=== PATIENT | male | born 1975 | race Caucasian/White ===

== ENCOUNTER 2018-10-05 08:01 | Inpatient (IN) | payer SELFPAY ==
[~2018-10-05] VITALS: Ht 177.8 cm; Wt 106.6 kg
[2018-10-05] MEDS ORDERED: SODIUM CHLORIDE 0.9% 1,000 ML IV ONE ×2 (10:03→11:35)
[2018-10-05] MEDS ORDERED: ONDANSETRON HCL 4MG/2ML INJ IV ONE (10:15)
[2018-10-05] MEDS ORDERED: MECLIZINE 25MG TABLET PO ONE (10:15)
[2018-10-05 11:18] LABS: BASOPHILS % 0.1 % (0.0-2.0); HEMATOCRIT. 46.9 % (42.0-52.0); LYMPHOCYTES % 8.1 % (20.0-50.0); MEAN CORPUSCULAR HEMOGLOBIN 28.7 pg (28.0-32.0); MEAN CORPUSCULAR VOLUME 84.2 fL (80.0-94.0); MEAN PLATELET VOLUME 8.7 fl (7.4-10.4); MONOCYTES % 6.5 % (2.0-8.0); NEUTROPHILS % 85.3 % (40.0-76.0); PLATELET 172 x1000/uL (130-400); RED BLOOD CELL COUNT 5.57 mill/uL (4.7-6.1); RED CELL DISTRIBUTION WIDTH 13.3 % (11.6-14.6)
[2018-10-05 11:24] LABS: CHLORIDE 106 mEq/L (98-107)
[2018-10-05 11:28] LABS: PROTHROMBIN TIME 10.3 sec (9.1-11.1)
[2018-10-05] MEDS ORDERED: LORAZEPAM 0.5MG TABLET PO PRN (17:30)
[2018-10-05] MEDS ORDERED: ONDANSETRON HCL 4MG/2ML INJ IV PRN (17:30)
[2018-10-05] MEDS ORDERED: DIPHENHYDRAMINE 50MG/ML VIAL IV PRN (17:30)
[2018-10-05] MEDS ORDERED: ACETAMINOPHEN 325MG TABLET PO PRN (17:30)
[2018-10-05] MEDS ORDERED: MECLIZINE 25MG TABLET PO PRN (17:30)
[2018-10-05] MEDS: SODIUM CHLORIDE 0.9% 1,000 ML IV SCH (18:33)
[2018-10-05 21:05] VITALS: BP 129/69
[2018-10-05] MEDS ORDERED: OMEP20TA15 PO (23:24)
[2018-10-05] MEDS ORDERED: CITA10TA16 PO (23:24)
[2018-10-06] VITALS: BP 121/59
[2018-10-06] MEDS: SODIUM CHLORIDE 0.9% 1,000 ML IV SCH (01:26)
[2018-10-06 04:00] VITALS: BP 119/64
[2018-10-06 06:46] LABS: BASOPHILS % 0.2 % (0.0-2.0); EOSINOPHILS % 1.2 % (0.0-5.0); HEMATOCRIT. 43.9 % (42.0-52.0); LYMPHOCYTES % 26.5 % (20.0-50.0); MEAN CORPUSCULAR HEMOGLOBIN 28.7 pg (28.0-32.0); MEAN CORPUSCULAR VOLUME 83.8 fL (80.0-94.0); MEAN PLATELET VOLUME 8.9 fl (7.4-10.4); MONOCYTES % 10.8 % (2.0-8.0); NEUTROPHILS % 61.3 % (40.0-76.0); PLATELET 172 x1000/uL (130-400); RED BLOOD CELL COUNT 5.24 mill/uL (4.7-6.1); RED CELL DISTRIBUTION WIDTH 13.4 % (11.6-14.6)
[2018-10-06 06:55] LABS: CHLORIDE 110 mEq/L (98-107)
[2018-10-06 07:06] LABS: PHOSPHORUS 2.7 mg/dL (2.5-4.9)
[2018-10-06 08:00] VITALS: BP 122/60
[2018-10-06] MEDS: PANTOPRAZOLE SODIUM 40 MG/VIAL IV SCH ×2 (09:10→12:14)
[2018-10-06] MEDS: CITALOPRAM HYDROBROMIDE 10MG TABLET PO SCH ×2 (09:11→12:14)
[2018-10-06 12:00] VITALS: BP 136/93
[2018-10-06 16:00] VITALS: BP 126/64
[2018-10-06] MEDS: MECLIZINE 25MG TABLET PO SCH (16:44)
[2018-10-06 20:00] VITALS: BP 117/79
[2018-10-07] MEDS: MECLIZINE 25MG TABLET PO SCH ×3 (01:59→17:57)
[2018-10-07 04:00] VITALS: BP 109/67
[2018-10-07 08:00] VITALS: BP 135/78
[2018-10-07 17:39] VITALS: BP 131/92
== END 2018-10-07 18:50 | disposition home or self-care (01) | DRG 111 ==
LOC: ER 08:22 → EDBEDREQTM 13:29 → EDBEDREQ 13:29 → 7WST 13:29 → ENRESERV 20:23 → 6EST 10-06 22:01
PROVIDERS: ADMIT Internal Medicine; ATTEND Internal Medicine
DX: H83.09 Labyrinthitis, unspecified ear (principal); B37.0 Candidal stomatitis; J34.1 Cyst and mucocele of nose and nasal sinus; F32.9 Major depressive disorder, single episode, unspecified; Z79.899 Other long term (current) drug therapy; K21.9 Gastro-esophageal reflux disease without esophagitis
CPT/HCPCS: 36415; 70551; 71045; 80048; 83735; 84100; 93005; 96374; 96375; 97112; 97162; 99285; C9113; J2405; J7030; J8597